=== PATIENT | male | born 1995 | race Caucasian/White ===

== ENCOUNTER 2025-06-25 05:59 | Emergency (ER) | payer BC, SELFPAY ==
[2025-06-25 06:06] VITALS: PULSE 67; RESP 20; TEMP 36.6; O2SAT 99; BMI 29.3
--- NOTE | 2025-06-25 06:40 | ED.SKABFB ---
HPI - Skin/Abscess/Foreign Bdy General Chief complaint: Skin/Abscess/Foreign Body Stated complaint: lac on hand Time Seen by Provider: 06/25/25 06:06 Source: patient Mode of arrival: ambulatory Limitations: no limitations History of Present Illness ED Provider: Dr. Erin Benavides HPI narrative: Patient comes to the emergency room complaining of a laceration to his left hand on the palm. Patient states that he was about to go for a run. Patient states that there was a container in his car and accidentally lacerated his hand. Patient states that he only has localized pain, states that he can move all of his fingers. Denies being on blood thinners Related Data Allergies Allergy/AdvReac Type Severity Reaction Status Date / Time No Known Allergies Allergy Verified 06/25/25 06:08 Review of Systems Review of Systems: Constitutional : No Weight loss, No Fever, No Chills, No Night Sweats, No Fatigue, No Malaise ENT/Mouth : No Hearing loss, No Ear Pain, No Nasal Congestion, No Sinus Pain, No Hoarseness, No sore throat, No Rhinorrhea, No Swallowing Difficulty Eyes: No Eye Pain, No Swelling, No Redness, No Foreign Body, No Discharge, No Vision Changes Cardiovascular : No Chest Pain, No SOB, No Dyspnea on Exertion, No Orthopnea, No Edema, No Palpitations Respiratory : No Cough, No Sputum, No Wheezing, No Smoke Exposure, No Dyspnea Gastrointestinal : No Nausea, No Vomiting, No Diarrhea, No Constipation, No abdominal Pain, No Hematochezia, No Melena Genitourinary : no irregular bleeding, No Dysuria, No Urinary Frequency, No Hematuria, No Urinary Incontinence, No Urgency, No Flank Pain, No Urinary Flow Changes, No Hesitancy Musculoskeletal : No joint pain, No Myalgias, No Joint Swelling Skin : Complaining of a laceration to the palm of the left hand Neuro : No Weakness, No Numbness, No Paresthesias, No Loss of Consciousness, No Dizziness, No Headache Psych : No Anxiety/Panic, No Depression, No SI/HI/AH/VH, No Social Issues, Heme/Lymph: No Bruising, No Bleeding,No Lymphadenopathy Endocrine : No Polyuria, No Polydipsia, No Temperature Intolerance PMFSH Social History Social History Do you have a plan to hurt others: No Plan Physical Exam Exam: Exam: Appearance: Alert. Oriented X3. No acute distress. Eyes: Pupils equal, round and reactive to light. ENT: Pharynx normal. Neck: Normal inspection. Neck supple. No lymph nodes noted. No crepitus CVS: Normal heart rate and rhythm. Pulses normal. Normal S1 and S2 Respiratory: No respiratory distress. Breath sounds normal. No Wheezing. No rales Abdomen: Soft and nontender. No rigidity. No distention. Skin: Skin warm and dry. Normal skin color. Normal skin turgor. In the palm, there is 6 cm laceration Extremities: No lower extremity edema. No Lacerations. No Rash. Patient is able to flex and extend all fingers and oppose the thumb to all fingers Neuro: Oriented X 3. No motor deficit. No sensory deficit. Moving all extremities. No slurred speech. CN 2 through 12 grossly intact Psych: calm, cooperative, normal affect Vital Signs: Vital Signs: Last Vital Signs Temp 97.9 F 06/25/25 06:06 Pulse 67 06/25/25 06:06 Resp 20 06/25/25 06:06 Pulse Ox 99 06/25/25 06:06 O2 Del Method Room Air 06/25/25 06:06 BMI result Body Mass Index 29.3 Medical Decision Making Medical Decision Making MDM Narrative: Patient needed 9 stitches Tolerated well the procedure Patient was given a Tdap booster Differential Diagnosis Differential Diagnoses: The differential diagnosis associated with the presentation includes (Laceration, puncture wound) Discharge Plan Discharge Clinical Impression: Laceration of hand Patient Disposition: Home, Self-Care Instructions: Laceration (ED) Additional Instructions: Your stitches need to be removed in 7-10 days. It may be done at your primary care physician's office, urgent care or here in the emergency room. If you see any signs of infection such as redness, pus drainage, pain out of proportion, fever, please return to the emergency room. Please follow-up with your primary care physician tomorrow. If you have any worsening or new symptoms, please return to the emergency room or call 911
[2025-06-25] MEDS: Lidocaine HCl 1 % 20 ML VIAL 10 ML INFILTRATI (06:43)
[2025-06-25] MEDS: Diphth,Pertus(ACell),Tet Adult 0.5 ML SYRINGE IM (06:52)
[2025-06-25 07:04] VITALS: BP 138/74; PULSE 67; RESP 20; TEMP 36.6; O2SAT 99
== END 2025-06-25 07:06 | disposition home or self-care (01) ==
PROVIDERS: Emergency Provider Emergency Medicine
DX: S61.412A Laceration without foreign body of left hand, initial encounter (principal); W26.9XXA Contact with unspecified sharp object(s), initial encounter; Y93.02 Activity, running; Y92.9 Unspecified place or not applicable; Y99.9 Unspecified external cause status; Z23 Encounter for immunization
CPT/HCPCS: 12002; 90471; 90715; 99282; 99284; J2003